=== PATIENT | male | born 1970 | race Caucasian/White ===

== ENCOUNTER 2020-12-14 01:29 | Emergency (ER) | payer OTHER ==
[~2020-12-14] VITALS: Ht 177.8 cm; Wt 86.2 kg
--- NOTE | 2020-12-14 01:34 | NUR ---
Dr. Rader at bedside for MSE.
--- NOTE | 2020-12-14 01:43 | NUR ---
Xray at bedside.
--- NOTE | 2020-12-14 02:10 | NUR ---
Pt medically cleared by Yosi Gonzalez to book. VSS, no acute signs of distress, released to the custody of [employer] officer Alberto #[id number] of [facility].
[2020-12-14 02:12] VITALS: BP 145/91
== END 2020-12-14 02:13 ==
LOC: ER 01:34
DX: K42.9 Umbilical hernia without obstruction or gangrene (principal); R05 Cough; Z86.16 Personal history of COVID-19
CPT/HCPCS: 71045; A4663

== ENCOUNTER 2022-10-06 18:43 | Emergency (ER) | payer OTHER ==
[~2022-10-06] VITALS: Ht 177.8 cm; Wt 86.2 kg
[2022-10-06] MEDS ORDERED: HALOPERIDOL LACTATE 5 MG/1 ML VIAL ONE (19:23)
[2022-10-06] MEDS ORDERED: HALOPERIDOL LACTATE 5 MG/1 ML VIAL IM ONE (19:30)
[2022-10-06 20:00] LABS: HEMATOCRIT 35.8 % (36.7-47.1); MEAN CORPUSCULAR VOLUME 93.4 fL (73.0-96.2); PLATELET COUNT (AUTO) 276 K/uL (152-348)
[2022-10-06 20:15] LABS: ALANINE AMINOTRANSFERASE 67 U/L (16-63); ALKALINE PHOSPHATASE 75 U/L (50-136); ASPARTATE AMINOTRANSFERASE 55 U/L (15-37); BILIRUBIN,DIRECT < 0.1 mg/dL (0.0-0.2); BILIRUBIN,TOTAL 0.1 mg/dL (0.2-1.0); CARBON DIOXIDE 33 mmol/L (21-32); CHLORIDE 103 mmol/L (98-107); CREATININE 1.1 mg/dL (0.6-1.3); GLUCOSE 114 mg/dL (74-106); POTASSIUM 3.3 mmol/L (3.5-5.1); TOTAL PROTEIN, SERUM 6.4 g/dL (6.4-8.2); UREA NITROGEN, BLOOD 14 mg/dL (7-18)
[2022-10-06] MEDS ORDERED: KETAMINE HCL 500 MG/10 ML INJ ONE (20:37)
[2022-10-06] MEDS ORDERED: KETAMINE HCL 500 MG/10 ML INJ IV ONE (20:45)
--- NOTE | 2022-10-06 20:57 | NUR ---
PATIENT TO ROOM # 5, CARE ASSUMED AT 1920, PATIENT ALERT AND ORIENTED X4, INFORMED OF PLAN OF CARE AT THAT TIME, PLACED ON MONITOR AND ASSISTED INTO GOWN, AWARE AWAITING MD EXAM. NO S/S OF ANY RESPIRATORY DISTRESS NOTED, ABD SOFT NON-TENDER TO PALPATION WITH POSITIVE BOWEL SOUNDS, #18 LUCIANA WAS ESTABLISHED IN RIGHT AC AREA. PATIENT HAS BEEN MEDICATED PER ORDER WITH HALDOL IM, AND MEDICATED BY ER MD WITH KETAMINE 30MG IV AT 2044. WILL CONTINUE TO MONITOR.
--- NOTE | 2022-10-06 21:39 | NUR ---
AT BEDSIDE TO MEDICATE PATIENT WITH 60MG OF KETAMINE IV, IV NORMAL SALINE INFUSING PER ORDER AT THIS TIME. 141/[id number]%. PATIENT WAS ASSISTED BACK TO BED WITH, SIDE RAILS UP X 2 WILL CONTINUE TO MONITOR.
[2022-10-06] MEDS ORDERED: ZIPRASIDONE MESYLATE 20 MG VIAL IM ONE ×2 (21:45→22:12)
[2022-10-06] MEDS ORDERED: IV NS 1000 ML 1,000 ML IV ONE (21:45)
[2022-10-06 23:18] LABS: *BILIRUBIN,URIN NEGATIVE (NEGATIVE); *BLOOD, URINE NEGATIVE (NEGATIVE); *CLARITY,URINE CLEAR (CLEAR); *COLOR,URINE YELLOW (YELLOW); *KETONES,URINE NEGATIVE (NEGATIVE); *UROBILINOGEN,URINE 0.2 E.U./dl (NORMAL); LEUKOCYTE ESTERASE ,URINE NEGATIVE (NEGATIVE); NITRITE, URINE NEGATIVE (NEGATIVE); UGLUCOSE NEGATIVE (NEGATIVE)
--- NOTE | 2022-10-06 23:32 | NUR ---
PATIENT SLEEPING AT THIS TIME NO S/S OF ANY DISTRESS NOTED.117/65-87-18-94%, SIDE RAILS REMAIN UP WILL CONTINUE TO MONITOR.
--- NOTE | 2022-10-07 00:59 | NUR ---
patient to ct via gurney.
--- NOTE | 2022-10-07 01:40 | NUR ---
patient continues to rest without any c/o, no s/s of any distress noted. 143/93-92-16-94% ra. side rails up will continue to monitor.
--- NOTE | 2022-10-07 02:40 | NUR ---
patient sleeping , no distress noted. 138/88-83-18-96% room air, side rails remain up with urinal in reach.
--- NOTE | 2022-10-07 04:10 | NUR ---
patient continues to sleep without c/o, 137/79-89-18-97% room air. side rails up no change in prior assessment.
--- NOTE | 2022-10-07 05:27 | NUR ---
given wather to drink, informed will road test if pass will be discharged home.
--- NOTE | 2022-10-07 05:51 | NUR ---
patient up walking, ambulates with a steady gait.
[2022-10-07 06:27] VITALS: BP 139/75
[2022-10-07 12:23] LABS: *AMPHETAMINE, URINE NEGATIVE (NEGATIVE); *CANNABINOID, URINE NEGATIVE (NEGATIVE); *COCCAINE, URINE NEGATIVE (NEGATIVE); *OPIATE, URINE NEGATIVE (NEGATIVE); *PHENCYCLIDINE SCREEN,URINE NEGATIVE (NEGATIVE)
== END 2022-10-07 06:29 | disposition home or self-care (01) ==
LOC: ER 18:45
DX: G31.2 Degeneration of nervous system due to alcohol (principal); D64.9 Anemia, unspecified; E87.6 Hypokalemia; R74.01 Elevation of levels of liver transaminase levels; F10.20 Alcohol dependence, uncomplicated; Y90.6 Blood alcohol level of 120-199 mg/100 ml
CPT/HCPCS: 80076; 80048; 81003; 85025; 36415; 70450; 99285; 96372 ×2; 80320; 80307; J1630; J3490; J3486; G0480